=== PATIENT | male | born 1985 | race Caucasian/White ===

== ENCOUNTER 2018-03-21 08:13 | Day surgery (SDC) | payer BC, OTHER ==
[2018-03-21] MEDS ORDERED: CEFAZOLIN 1 GM VIAL ONE (08:36)
[2018-03-21] MEDS ORDERED: Adacel (T-DAP) 0.5 ML VIAL ONE (08:36)
[2018-03-21] MEDS ORDERED: CEFAZOLIN/Water 2 GM/20 ML SYRINGE ONE (08:40)
[2018-03-21] MEDS ORDERED: Morphine 4 MG/ML VIAL ONE ×2 (08:40→08:54)
--- NOTE | 2018-03-21 09:02 | RAD ---
THREE VIEWS LEFT HAND: History: Injury. Hand caught in a machine. There is excision of tips of the left 2nd and 3rd fingers. FINDINGS: Three views of the left hand shows amputation of the tips of the index and middle fingers. There is a bsence of the tuft of the distal phalanx of both of these fingers. No fracture or the remaining bone is seen. IMPRESSION: Amputation of the tips of the index and middle fingers. POS: [facility]
--- NOTE | 2018-03-21 10:05 | CON ---
DATE OF CONSULTATION: 03/21/2018 REQUESTING PHYSICIAN: Dr. Fuentes CONSULTING PHYSICIAN: Dr. Burt Kc REASON FOR CONSULTATION: Left index and long finger amputations. 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 He states that he was using a piece of machinery that is somewhat similar to a clamp with a blade. He had an accident involving his left index and long fingers using this piece of equipment and cut the tips of these two fingers off. He was brought in by ground EMS transportation. He did bring in the fingertips on ice. The patient states he is right-handed. No other injuries occurred at the time of the one. He states that his pain is controlled by pain medicine, but it is throbbing in nature and constant. Made worse by nothing, improved by medicine. PAST MEDICAL HISTORY: Patient denies any past medical history. PAST SURGICAL HISTORY: The patient denies any past surgical history. SOCIAL HISTORY: Patient denies any alcohol, drug or smoking history. The patient lives with his and kids. He is from [place], [place]. FAMILY HISTORY: Reviewed and noncontributory. ALLERGIES: No known drug allergies. REVIEW OF SYSTEMS: Ten point review of systems conducted and otherwise negative except for as stated above. PHYSICAL EXAMINATION: VITAL SIGNS: Blood pressure 140/92, pulse of 84, respiratory rate 18, temperature 98.2. GENERAL: The patient is awake and alert. He is in no acute distress at this time. He is pleasant and cooperative with exam findings today. 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 HEENT: Head is normocephalic, atraumatic. NECK: Supple. Trachea midline. RESPIRATORY: Breathing nonlabored. EXTREMITIES: The left upper extremity shows an amputation at the left index finger. This appears to be just distal to the DIP. There is bone protruding. Bleeding is controlled. The patient does report sensation intact up until the point of the amputation. He is able to flex and extend at the PIP and MP joint of this digit. There is also an amputation noted to the left long finger. This appears to be distal to the DIP. He reports sensation intact up until the point of the amputation site. Bleeding is controlled. He is able to flex and extend at the PIP and MP joints. No other visualized injuries noted to this extremity. Patient is nontender at the wrist, elbow and shoulder have full range of motion in all these joints. Remainder of extremity exam is unremarkable for other injuries noted to other extremities. RADIOGRAPHIC FINDINGS: Including 3 views of the left hand show evidence of amputation of the tips of the index and middle fingers. These amputation sites appeared to be distal third of the distal phalanx on both digits. Otherwise, no acute findings. ASSESSMENT: Left hand amputation at the distal phalanx of both the left index and left long fingers. PLAN: At this time, we have discussed the plan of care with the patient today. It is very unlikely we would be able to reattach his fingertips as he brought them in bags of ice. They are too distal to revascularize. We will plan to shorten the bone and cover with skin. The patient states he last ate at 7:00 a.m. this morning. Risks, benefits, and alternatives of surgery were discussed at length with the patient today. These include, but are not limited to bleeding, infection, or further neurovascular injury. He verbalized understanding is amenable to this plan of care. We will plan for surgery later this afternoon. The patient was given Ancef, tetanus and morphine in the emergency department. He is comfortable at this time. He will remain n.p.o. until surgery time. [facility]
[2018-03-21] MEDS ORDERED: Fentanyl 100 MCG/2 ML VIAL ONE ×4 (13:48→16:52)
[2018-03-21] MEDS ORDERED: Famotidine/PF 20 mg/2ml Vial ONE (13:48)
[2018-03-21] MEDS ORDERED: Bupivacaine PF 0.5% 30 ML VIAL ONE (14:50)
[2018-03-21] MEDS ORDERED: Midazolam HCl 2 mg/2 ml Vial ONE (15:00)
[2018-03-21] MEDS ORDERED: Ondansetron HCl/PF 4 MG/2 ML Vial ONE (15:40)
[2018-03-21] MEDS ORDERED: PROPOFOL 200 MG/20 ML VIAL ONE (15:40)
[2018-03-21] MEDS ORDERED: Lidocaine 1% PF 5 ML VIAL ONE (15:40)
[2018-03-21] MEDS ORDERED: HYDROcodone/Acetaminophen 5/325 mg Tablet ONE (17:14)
[2018-03-21] MEDS ORDERED: Ketorolac Tromethamine 30 MG/ML VIAL ONE (17:40)
--- NOTE | 2018-03-22 15:30 | OP ---
DATE OF PROCEDURE: 03/21/2018 PREOPERATIVE DIAGNOSIS: Fingertip amputation, left index and long fingers. POSTOPERATIVE DIAGNOSIS: Fingertip amputation, left index and long fingers. SURGICAL PROCEDURES: Revision of left index and long finger amputation with shortening of distal pha lanx and primary loose closure of amputation stumps (2 cm wound closures of both left index and long fingers). ANESTHESIA: General. SURGEON: Burt Kc M.D. TOURNIQUET TIME: Zero. BLOOD LOSS: 30 mL. IMPLANTS: None. DRAINS: None. SPECIMEN: None. COMPLICATIONS: None. INDICATIONS: Patient is a 32-year-old gentleman involved in an industrial accident sustaining a abilio h injury with loss of fingertips of both left index and long fingers. The patient was found to have exposed distal phalanx bone at the wound. After discussion with patient including risks and benefits , we decided to proceed with irrigation and debridement, as well as anticipated shortening of the dis chel[place] phalanx with some loose primary closure of the wounds. Informed consent has been obtained. I be lieve all questions have been answered. DESCRIPTION OF PROCEDURE: The patient was brought to the operating room and a timeout performed foll owed by induction of general anesthesia. Next, a sterile prep and drape was performed of the left up per extremity. The two wounds were inspected. There was found to be no foreign debris encountered i n either the index or long fingertip amputation stumps. There was good bleeding tissue. This did re quire some electrocautery to get hemostasis. Next, the distal phalanx was identified in each of the 2 fingers and using minimal subperiosteal dissection, the distal phalanx tip was skeletonized and the n shortened using a rongeur. They were shortened only to the point where soft tissue coverage could be provided with the skin still available. Once shortened, the two stumps had basically a fish mouth type closure performed with 3-0 nylon in simple fashion. At the completion of this, a Xeroform foll owed by tube gauze dressing was applied to each finger and then patient was transferred to [facility] r o in stable condition. There were no complications and the patient tolerated the procedure well.
== END 2018-03-21 18:10 | disposition home or self-care (01) ==
LOC: ERS 08:13
PROVIDERS: ATTEND Orthopaedic Surgery
PROC: 0X6P0Z3 Detachment at Left Index Finger, Low, Open Approach (ICD-10-PCS; principal; 2018-03-21)
PROC: 0X6R0Z3 Detachment at Left Middle Finger, Low, Open Approach (ICD-10-PCS; principal; 2018-03-21)
DX: S68.611A Complete traumatic transphalangeal amputation of left index finger, initial encounter (principal); S68.613A Complete traumatic transphalangeal amputation of left middle finger, initial encounter; S67.191A Crushing injury of left index finger, initial encounter; S67.193A Crushing injury of left middle finger, initial encounter; W31.82XA Contact with other commercial machinery, initial encounter; Y92.69 Other specified industrial and construction area as the place of occurrence of the external cause; Y99.0 Civilian activity done for income or pay
CPT/HCPCS: 90471; 90715; 96361; 96365; 96374; 96375; G0390; J0690; J1885; J2001; J2250; J2270; J2405; J2704; J3010; S0020; S0028